=== PATIENT | female | born 1995 | race Caucasian/White ===

== ENCOUNTER 2019-05-10 21:07 | Emergency (ER) | payer SELFPAY ==
[2019-05-10 21:13] VITALS: BP 149/87; PULSE 126; RESP 20; TEMP 36.7; O2SAT 96; BMI 38.2
--- NOTE | 2019-05-10 21:30 | PC.NURSE ---
Patient reports that she has had a fever, chills, body aches, neck pain, and a sore throat.
--- NOTE | 2019-05-10 21:34 | W.ED.GENADLT ---
HPI - General Adult General: Chief complaint: General Medical Stated complaint: fever/neck pain Time Seen by Provider: 05/10/19 21:23 Source: patient Mode of arrival: ambulatory Limitations: no limitations History of Present Illness: HPI narrative: Patient comes in with 2-day history of illness with sore throat and chills starting yesterday. Patient appears mildly unwell. Patient appears in no pain at rest. Review of Systems General: Reports: 10 or more systems reviewed and unremarkable except in HPI and below Const: Reports: chills ENMT: Reports: throat pain PFSH ED PFSH: Statuses (acute, chronic, etc) shown below reflect problem list status as previously entered and may not be historically accurate Social History Smoking and tobacco status: never smoked Female Reproductive History: Date of last menstrual period: 05/03/19 Physical Exam Const: COMMON NORMALS: no apparent distress and oriented x3 GENERAL APPEARANCE: cooperative HENMT: COMMON NORMALS: normocephalic, external ears normal, EAC's normal, TM's normal bilaterally and external nose normal HEAD & SCALP: normal to inspection and normocephalic FACE & SINUS: normal facial exam NOSE: external nose normal GENERAL EAR: hearing not grossly impaired EXTERNAL EAR: Yes external ears normal EXTERNAL AUDITORY CANAL: EAC's normal TYMPANIC MEMBRANE: TM's normal bilaterally MOUTH: oral and palatal mucosa normal THROAT: posterior oropharynx abnormal erythema Eye: COMMON NORMALS: PERRL and EOMs intact bilaterally PUPIL: Yes PERRL Neck/C-Spine: COMMON NORMALS: full ROM and no lymphadenopathy Lymph: LYMPHATIC: no lymphedema noted Chest: COMMONS NORMALS: inspection of chest normal and palpation of chest normal Resp: COMMON NORMALS: normal respiratory effort and clear to auscultation bilaterally AUSCULTATION: clear to auscultation bilaterally Cardio: COMMON NORMALS: regular rate and regular rhythm RATE: regular rate RHYTHM: regular rhythm GI: COMMON NORMALS: normal to inspection, nondistended, normoactive bowel sounds and non-tender : COMMON NORMALS: Yes no CVA tenderness BLADDER/KIDNEY EXAM: Yes no CVA tenderness Back/Pelvis: COMMON NORMALS: no CVA tenderness and thoracic and lumbar spine normal to inspection Extremity: COMMON NORMALS: normal to inspection GENERAL: No edema Neuro: COMMON NORMALS: oriented x3, moves all extremities and no focal motor deficits Psych: COMMON NORMALS: mental status grossly normal and cooperative Skin: COMMON NORMALS: no rashes or lesions noted GENERAL SKIN EXAM: no rashes or lesions noted Course Vital Signs: Vital signs: Vital Signs Temperature 98.1 F 05/10/19 21:13 Pulse Rate 126 H 05/10/19 21:13 Respiratory Rate 20 H 05/10/19 21:13 Blood Pressure 149/87 05/10/19 21:13 Pulse Oximetry 96 05/10/19 21:13 MDM - General Adult MDM Narrative: Medical decision making narrative: Patient comes in today for complaints of sore throat and chills for last 2 days. On exam we note erythema to the posterior pharynx. No obvious swelling. No significant lymphadenopathy. Respirations are even lungs are clear to auscultation. Differential diagnosis includes influenza, strep, viral syndrome. Influenza and strep test were both negative. Reviewed exam with patient recommended dexamethasone to help with the discomfort of the sore throat. Recommend Tylenol and ibuprofen and plenty fluids otherwise. Patient reports understanding agreed to plan and need for follow-up for worsening signs and symptoms. Lab Data: Labs: Lab Results 05/10/19 05/10/19 Range/Units 21:28 21:28 Influenza Type A A g Negative (Negative) POC Influenza B Ag Negative (Negative) Group A Strep Rapi d Negative (Negative) Discharge Plan Discharge Patient Disposition: Home, Self-Care Clinical Impression: URI (upper respiratory infection) Qualifiers: URI type: acute pharyngitis Pharyngitis/tonsillitis etiology: unspecified etiology Qualified Code(s): J02.9 - Acute pharyngitis, unspecified Condition: Stable Discharge Orders: Discharge Order (Routine); Ordered 05/10/19 Ordered By: Magdaleno Cruz Referrals: Parish Martin DO [Primary Care Provider] - Discharge Diet: Usual diet Discharge Activity: Resume usual activity Patient Instructions: Pharyngitis (ED) Activity Restrictions/Additional Instructions: Drink plenty of water Activity as tolerated Acetaminophen and ibuprofen for pain and fever Follow-up with primary care as needed Return to ER for difficulty breathing or new concerns Stand Alone Forms: Work/School Release Coding Level of Care Code ED Social Sciences Lecturer for Alirio Dc Exam Problem Focused
[2019-05-10 22:10] LABS: Rapid Strep A Test Negative (Negative)
[2019-05-10 22:19] LABS: Influenza A by IFA Negative (Negative); Influenza B by IFA Negative (Negative)
[2019-05-10] MEDS: dexamethasone 10 mg/mL INJ IM (22:49)
[2019-05-10 22:52] VITALS: BP 132/88; PULSE 100; RESP 17; O2SAT 95
== END 2019-05-10 22:53 | disposition home or self-care (01) ==
PROVIDERS: Emergency Provider Nurse Practitioner Family; Family Provider Internal Medicine; PCP Internal Medicine
DX: J02.9 Acute pharyngitis, unspecified (principal)
CPT/HCPCS: 87081; 87804; 87880; 96372; 99282; 99283; J1100

== ENCOUNTER 2019-10-14 18:32 | Emergency (ER) | payer SELFPAY ==
[2019-10-14 18:36] VITALS: BMI 36.6
[2019-10-14 18:40] VITALS: BP 115/68; PULSE 113; RESP 18; TEMP 37.2; O2SAT 93
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
[2019-10-14 20:30] VITALS: BP 164/58; PULSE 72; RESP 18; O2SAT 96
== END 2019-10-14 20:39 | disposition home or self-care (01) ==
PROVIDERS: Emergency Provider Nurse Practitioner Family; PCP Internal Medicine
DX: S00.03XA Contusion of scalp, initial encounter (principal); M54.2 Cervicalgia; W22.09XA Striking against other stationary object, initial encounter
CPT/HCPCS: 12345; 70450; 72125; 99281; 99282

== ENCOUNTER 2019-11-28 22:38 | Emergency (ER) | payer SELFPAY ==
[2019-11-28 22:48] VITALS: BP 140/92; PULSE 97; RESP 18; TEMP 36.7; O2SAT 99; BMI 38.2
--- NOTE | 2019-11-28 22:51 | ED_ITS ---
HPI - Ear Problem General: Chief complaint: Ear Stated complaint: earache Time Seen by Provider: 11/28/19 22:46 History of Present Illness: HPI Narrative: Patient is a 24-year-old female comes to the ED with ear pain in the right ear. Symptoms started approximately 1 week ago. Patient describes the pain as being sharp ear pain and now any touch to her external part of her ear causes pain. Denies any fever, chills, nausea/vomiting, cough, nasal congestion or drainage, bladder or bowel symptoms. Denies any recent swimming or getting any water in her ear. Associated symptoms: Reports ear or mastoid pain (right ear); Denies fever(s), headache(s) or neck pain Review of Systems Const: Denies: fever(s), chills or fatigue Eyes: Denies: change in vision or eye discomfort ENMT: Reports: ear or mastoid pain (right ear); Denies: throat pain, odynophagia, nasal discharge or nasal congestion Card: Denies: chest pain, palpitations, edema, swelling of feet/ankles, dyspnea on exertion or orthopnea Resp: Denies: dyspnea, productive cough or non-productive cough GI: Denies: abdominal pain, nausea, vomiting, diarrhea, constipation or hematochezia : Denies: flank pain, dysuria or hematuria Musc: Denies: neck pain, back pain or extremity swelling Skin/Breast: Denies: rash or new lesions Neuro: Denies: headache(s), numbness in extremities or weakness in extremities PFSH ED PFSH: Social History Smoking and tobacco status: never smoked Female Reproductive History: Date of last menstrual period: 11/14/19 Physical Exam Const: COMMON NORMALS: no acute distress, patient oriented x3, healthy appearing and alert GENERAL APPEARANCE: cooperative and comfortable HENMT: COMMON NORMALS: normocephalic HEAD & SCALP: normocephalic EXTERNAL EAR: Yes external ear abnormal Abnormal external ear present: auricular tenderness (right ) EXTERNAL AUDITORY CANAL: Abnormal EAC present EAC laterality: right Details: erythema, edema and EAC tenderness TYMPANIC MEMBRANE: TM normal on the left and TM abnormal TM laterality: right Details: bulging and fluid behind TM MOUTH: Normal oral and palatal mucosa present THROAT: posterior oropharynx normal and uvula midline Neck/C-Spine: COMMON NORMALS: supple GENERAL: Yes normal visual inspection Resp: COMMON NORMALS: normal respiratory effort, No retractions, No use of accessory muscles and clear to auscultation bilaterally AUSCULTATION: clear to auscultation bilaterally Cardio: COMMON NORMALS: regular rate, regular rhythm, S1 normal heart sound present, S2 normal heart sound present, No gallops present (Cardio), No clicks present (Cardio), No murmurs present (Cardio) and Peripheral pulses 2+ throughout RATE: regular rate RHYTHM: regular rhythm HEART SOUNDS: S1 normal heart sound present and S2 normal heart sound present PERIPHERAL PULSES: Peripheral pulses 2+ throughout GI: COMMON NORMALS: Normal to inspection, nondistended, normoactive bowel sounds present, Soft to palpation, non-tender and no masses PALPATION: Yes Soft to palpation : COMMON NORMALS: Yes no CVA tenderness BLADDER/KIDNEY EXAM: Yes no CVA tenderness Back/Pelvis: COMMON NORMALS: no CVA tenderness Extremity: COMMON NORMALS: normal to inspection Neuro: COMMON NORMALS: patient oriented x3 and moves all extremities SENSORIUM/ORIENTATION: Yes alert Skin: COMMON NORMALS: no rashes or lesions noted GENERAL SKIN EXAM: no rashes or lesions noted and dry skin Course Vital Signs: Vital signs: Vital Signs Temperature 98.1 F 11/28/19 22:48 Pulse Rate 97 11/28/19 22:48 Respiratory Rate 18 11/28/19 22:48 Blood Pressure 140/92 11/28/19 22:48 Pulse Oximetry 99 11/28/19 22:48 MDM - Ear MDM Narrative: Medical decision making narrative: Patient is a 24-year-old female comes to the ED with right ear pain. Patient appears in no acute distress and is sitting comfortable in the room. Denies any fever, chills, headache, nausea/vomiting, other upper respiratory symptoms. Physical exam showed some auricular tenderness upon palpation of the right ear. Right EAC was tender along with some erythema and edema in the EAC. TM on the right side had some fluid behind it and appeared to be bulging. Patient diagnosed with otitis media and otitis externa and given a prescription for amoxicillin and Ciprodex eardrops. Patient follow-up with primary care doctor in 7 to 10 days for reevaluation. Return to ED precautions given. Patient understood and agree with plan. Discharge Plan Discharge Patient Disposition: Home Clinical Impression: Otitis externa Qualifiers: Otitis externa type: swimmer's ear Chronicity: acute Laterality: right Qualified Code(s): H60.331 - Swimmer's ear, right ear Otitis media Qualifiers: Otitis media type: suppurative Chronicity: acute Laterality: right Recurrence: non-recurrent Spontaneous tympanic membrane rupture: without spontaneous rupture Qualified Code(s): H66.001 - Acute suppurative otitis media without spontaneous rupture of ear drum, right ear Condition: Stable Prescriptions: New ciprofloxacin-dexamethasone 0.3-0.1 % drops,suspension 4 drop EAR-BOTH BID 7 Days Qty: 7.5 RF: 0 amoxicillin 500 mg capsule 500 mg PO BID 10 Days Qty: 20 RF: 0 No Action No Known Home Medications RF: 0 Discharge Orders: Discharge Order (Routine); Ordered 11/28/19 Ordered By: Brian Hernandez Referrals: Parish Martin DO [Primary Care Provider] - Discharge Diet: Regular Discharge Activity: Resume usual activity Patient Instructions: Otitis Externa (ED), Otitis Media (ED) Activity Restrictions/Additional Instructions: Follow-up with medical provider as directed in the next 7-10 days. Take medications as prescribed. Return to the ER or your medical provider if condition worsens. Please read and understand discharge instructions. If any questions, please ask. Coding Level of Care Code ED Labor Conciliator for Alirio Fwd Exam Comprehensive
[2019-11-28] MEDS: ciprofloxacin-dexameth Otic Susp 7.5 mL Btl 4 DROP EAR-RIGHT (23:25)
[2019-11-28] MEDS: amoxicillin 500 mg Capsule PO (23:25)
[2019-11-28 23:27] VITALS: BP 127/84; PULSE 97; RESP 18; O2SAT 98
== END 2019-11-28 23:29 | disposition home or self-care (01) ==
PROVIDERS: Emergency Provider Physician Assistant; PCP Internal Medicine
DX: H60.331 Swimmer's ear, right ear (principal); H66.001 Acute suppurative otitis media without spontaneous rupture of ear drum, right ear
CPT/HCPCS: 12345; 99281; 99283

== ENCOUNTER → 2019-12-19 11:24 | Outpatient (BNVA) | payer OTHER, SELFPAY | PROVIDERS: PCP Internal Medicine; Visit Provider Nurse Practitioner Family | DX: J06.9 Acute upper respiratory infection, unspecified (principal); Z20.828 Contact with and (suspected) exposure to other viral communicable diseases | CPT/HCPCS: 87635 ==

== ENCOUNTER 2020-04-21 14:06 | Emergency (ER) | payer SELFPAY ==
[2020-04-21 14:29] VITALS: BP 135/91; PULSE 92; RESP 14; TEMP 36.2; O2SAT 97; BMI 39.2
--- NOTE | 2020-04-21 15:05 | ED_ITS ---
HPI - General Adult General: Chief complaint: General Medical Stated complaint: PIERCING STUCK, NEEDS REMOVED Time Seen by Provider: 04/21/20 15:04 History of Present Illness: HPI narrative: Patient is a 24-year-old female who comes to the ED to get piercing/foreign body removed from left areola. Patient says approximately a month ago she had her left areole pierced. She states that she pulled the bulb and through the first opening of the skin and it got stuck. She has been unable to remove piercing and for the past 3 days it got more painful and she states there is some purulent drainage. Associated symptoms: Deny chest pain, dyspnea, headache(s), nausea, rash, palpitations or vomiting Review of Systems Const: Denies: fever(s), chills or fatigue Eyes: Denies: change in vision or eye discomfort ENMT: Denies: throat pain, odynophagia, nasal discharge or nasal congestion Card: Denies: chest pain, palpitations, edema, swelling of feet/ankles, dyspnea on exertion or orthopnea Resp: Denies: dyspnea, productive cough or non-productive cough GI: Denies: abdominal pain, nausea, vomiting, diarrhea, constipation or hematochezia : Denies: flank pain, dysuria or hematuria Musc: Denies: neck pain, back pain or extremity swelling Skin/Breast: Reports: other (Foreign body in soft tissue. Areola piercing ); Denies: rash or new lesions Neuro: Denies: headache(s), numbness in extremities or weakness in extremities PFS ED PFSH: Social History Smoking and tobacco status: never smoked Female Reproductive History: Date of last menstrual period: 11/14/19 Physical Exam Const: COMMON NORMALS: no acute distress and patient oriented x3 GENERAL APPEARANCE: cooperative and comfortable HENMT: COMMON NORMALS: normocephalic HEAD & SCALP: normocephalic MOUTH: Normal oral and palatal mucosa present THROAT: posterior oropharynx normal and uvula midline Neck/C-Spine: COMMON NORMALS: supple GENERAL: Yes normal visual inspection Chest: NIPPLE/AREOLA: Yes areola abnormal Areola abnormal details: other (Embedded piercing with minimal purulent drainage around it.) Resp: COMMON NORMALS: normal respiratory effort, No retractions, No use of accessory muscles and clear to auscultation bilaterally AUSCULTATION: clear to auscultation bilaterally Cardio: COMMON NORMALS: regular rate, regular rhythm, S1 normal heart sound present, S2 normal heart sound present, No gallops present (Cardio), No clicks present (Cardio), No murmurs present (Cardio) and Peripheral pulses 2+ throughout RATE: regular rate RHYTHM: regular rhythm HEART SOUNDS: S1 normal heart sound present and S2 normal heart sound present PERIPHERAL PULSES: Peripheral pulses 2+ throughout GI: COMMON NORMALS: Normal to inspection, nondistended, normoactive bowel sounds present, Soft to palpation, non-tender and no masses PALPATION: Yes Soft to palpation : COMMON NORMALS: Yes no CVA tenderness BLADDER/KIDNEY EXAM: Yes no CVA tenderness Back/Pelvis: COMMON NORMALS: no CVA tenderness Extremity: COMMON NORMALS: normal to inspection Neuro: COMMON NORMALS: patient oriented x3 and moves all extremities Skin: GENERAL SKIN EXAM: dry skin Procedures Foreign Body Removal Time Out Performed: yes Site: other (Left areola--metal peircing) Description of foreign body: other (metal piercing) Sedation/Analgesia: none Technique: incision made to facilitate removal (local Lidocaine 1% used and then small incision made with #11 blade. metal peircing was successfully removed.) Confirmed by:: direct visualization Complications: none Post-procedure exam: awake, alert Neurovascular: no change from pre-procedure Course Vital Signs: Vital signs: Vital Signs Temperature 97.1 F L 04/21/20 14:29 Pulse Rate 92 04/21/20 14:29 Respiratory Rate 14 04/21/20 14:29 Blood Pressure 135/91 04/21/20 14:29 Pulse Oximetry 97 04/21/20 14:29 MDM - General Adult MDM Narrative: Medical decision making narrative: Patient is a 24-year-old female has a piercing on the left areola that is stuck. Local lidocaine 1% used and small incision made to facilitate removal of metal piercing. It was successfully removed and patient was discharged and put on a antibiotic to prevent any infection. Return to ED precautions given. Follow-up with PCP in 7 to 10 days. Patient understood and agreed with plan. Discharge Plan Discharge Patient Disposition: Home Clinical Impression: Foreign body (FB) in soft tissue Condition: Stable Prescriptions: New Augmentin 500-125 mg tablet 1 tab PO BID 7 Days Qty: 14 RF: 0 No Action No Known Home Medications RF: 0 hydrocodone-acetaminophen 5-325 mg tablet 1 tab PO Q4H PRN (Reason: pain) Qty: 10 RF: 0 Discharge Orders: Discharge ED (Routine); Ordered 04/21/20 Ordered By: Brian Hernandez Referrals: Parish Martin, [Primary Care Provider] - Discharge Diet: Regular Discharge Activity: Resume usual activity Patient Instructions: Soft Tissue Foreign Body (ED) Activity Restrictions/Additional Instructions: Follow-up with medical provider as directed in 7-10 days. Take medications as prescribed. Return to the ER or your medical provider if condition worsens. Please read and understand discharge instructions. If any questions, please ask. Coding Level of Care Code ED Manager Corporate Strategy for Alirio Fwd Exam Comprehensive
--- NOTE | 2020-04-21 15:26 | PC.NURSE ---
Laceration kit at bedside.
[2020-04-21] MEDS: lidocaine 1% INJ 20 mL INJECTION (15:29)
--- NOTE | 2020-04-21 15:41 | PC.NURSE ---
Nipple ring removed by BERNIE Caal.
--- NOTE | 2020-04-22 10:01 | DCPLANNER ---
rollout manager had message to schedule a follow up appointment for patient with ortho. rollout manager called the ortho clinic, spoke with Aleksandra, gave clinic patients information. rollout manager was told that patients information would be printed and reviewed. Clinic will call patient with appointment information.
--- NOTE | 2020-04-23 07:34 | DCPLANNER ---
Patient has a follow up appointment scheduled for Thursday, April 23, 2020 at 8:[address] Cedillo at [facility]. Clinic will call patient with appointment information.
--- NOTE | 2020-05-24 14:50 | DCPLANNER ---
Patient had a follow up appointment scheduled for 04.23.20 with ortho - patient did attend appointment.
== END 2020-04-21 15:57 | disposition home or self-care (01) ==
PROVIDERS: Emergency Provider Physician Assistant; PCP Internal Medicine
DX: M79.5 Residual foreign body in soft tissue (principal)
CPT/HCPCS: 10120; 12345; 99282

== ENCOUNTER 2020-04-21 20:13 | Emergency (ER) | payer SELFPAY ==
[2020-04-21 20:41] VITALS: BP 142/89; PULSE 79; RESP 16; TEMP 36.2; O2SAT 99; BMI 39.4
--- NOTE | 2020-04-21 21:03 | XRR_ITS ---
PROCEDURE INFORMATION: Exam: XR Left Foot Complete Exam date and time: 04/21/2020 9:05 PM Age: 24 years old Clinical indication: Injury or trauma; Fall; Blunt trauma; Injury date: 04/21/20; Injury details: Left lateral foot pain, right lateral foot and leg pain TECHNIQUE: Imaging protocol: XR Left foot. Views: 3 or more views. COMPARISON: No relevant prior studies available. FINDINGS: Bones/joints: There is an oblique fracture through the shaft of the 5th metatarsal bone with about 3 mm of dorsal medial displacement. Soft tissues: Normal. XR/XR foot LT min 3V* [id number] IMPRESSION: Mildly displaced oblique fracture of the shaft of the 5th metatarsal bone.
--- NOTE | 2020-04-21 21:03 | XRR_ITS ---
PROCEDURE INFORMATION: Exam: XR Right Foot Complete Exam date and time: 04/21/2020 9:05 PM Age: 24 years old Clinical indication: Injury or trauma; Fall; Blunt trauma; Injury date: 04/21/20; Patient HX: Left lateral foot pain, right lateral foot and leg pain TECHNIQUE: Imaging protocol: XR Right foot. Views: 3 or more views. COMPARISON: No relevant prior studies available. FINDINGS: Bones/joints: There is an oblique fracture through the distal fibula. The bones of the foot appear to be intact with no other fractures. No significant degenerative or erosive changes are present. Soft tissues: Normal. XR/XR foot RT min 3V* [id number] IMPRESSION: Oblique fracture of the distal fibula.
[2020-04-21 21:14] VITALS: PULSE 66
--- NOTE | 2020-04-21 21:16 | XRR_ITS ---
PROCEDURE INFORMATION: Exam: XR Right Ankle Exam date and time: 04/21/2020 9:41 PM Age: 24 years old Clinical indication: Injury or trauma; Fall; Blunt trauma; Ankle; Injury date: 04/21/20; Patient HX: Left lateral foot pain, right lateral foot and leg pain; Additional info: Fall ankle pain TECHNIQUE: Imaging protocol: XR Right ankle. Views: 3 or more views. COMPARISON: CR XR foot RT min 3V* [id number] 04/21/2020 9:19 PM FINDINGS: Bones/joints: There is no bleak fracture through the distal fibula just above the ankle joint. The distal fragment is displaced about 2.5 mm posteriorly. There is mild widening of the joint space between the medial malleolus and talus which may indicate deltoid ligament injury. Soft tissues: Normal. XR/XR ankle RT min 3V* [id number] IMPRESSION: There is an oblique mildly displaced fracture of the distal fibula and possible deltoid ligament injury.
--- NOTE | 2020-04-21 21:17 | ED_ITS ---
HPI - Fall General: Chief Complaint: Fall Stated Complaint: FALL, CAN'T FEEL EITHER FOOT Time Seen by Provider: 04/21/20 20:53 Source: patient Mode of arrival: wheelchair Limitations: no limitations History of Present Illness: HPI Narrative: 24-year-old female patient presents to the emergency department with bilateral foot pain and right ankle pain. She reports was walking down the steps to take the trash out, was walking in her flip-flops and fell down 4 stairs. She reports pain to the bilateral feet, has not ambulated since the fall due to pain in her feet. She denies any further injuries, denies pain of her back or buttocks. She did not hit her head. Does not experience nausea vomiting. MD complaint: fall Onset (ago): minute(s) (30) Fall from: standing and down stairs (#) (4) Place fall occurred: home Loss of consciousness: None Prolonged down time: no Symptoms prior to fall: none Context: tripped/slipped Location of injury - extremities: Right: ankle and Bilateral: foot Severity: moderate Quality: sharp, aching and tingling Associated symptoms-after fall: Reports no associated symptoms; Denies abdominal pain, chest pain, headache(s) or neck pain Review of Systems General: Reports: 10 or more systems reviewed and unremarkable except in HPI and below Const: Denies: fever(s), chills or diaphoresis Eyes: Denies: blurry vision or eye redness ENMT: Denies: throat pain, dental pain or disequilibrium Card: Denies: chest pain, palpitations or irregular heart rhythm Resp: Denies: dyspnea, productive cough, non-productive cough or wheezing GI: Denies: abdominal pain, nausea or vomiting : Denies: difficulty voiding or dysuria Musc: Reports: joint pain (Bilateral feet) and joint swelling (Bilateral feet); Denies: neck pain or back pain Skin/Breast: Denies: rash or pruritus Neuro: Denies: headache(s), weakness in extremities or behavioral changes Psych: Denies: anxiety or depression Julian/Lymph: Denies: easy bruising PFS ED PFSH: Social History Smoking and tobacco status: never smoked Female Reproductive History: Date of last menstrual period: 11/14/19 Physical Exam Const: COMMON NORMALS: no acute distress, patient oriented x3, healthy appearing, alert and well nourished GENERAL APPEARANCE: cooperative, well kempt, well developed and well hydrated; not comfortable and not ill appearing NUTRITIONAL APPEARANCE: obese ORIENTATION/CONSCIOUSNESS: Yes awake, Yes oriented to person, Yes oriented to place and Yes oriented to time HENMT: COMMON NORMALS: normocephalic, atraumatic, Normal external nose present and moist oral mucous membranes HEAD & SCALP: normal to inspection, normocephalic and atraumatic FACE & SINUS: normal facial exam, sinuses nontender and face symmetric NOSE: Normal external nose present MOUTH: Normal oral and palatal mucosa present THROAT: posterior oropharynx normal Eye: COMMON NORMALS: Equal, round and reactive pupils present and EOMs intact bilaterally GENERAL EYE: appearance normal, both eyes and all related structures PUPIL: Yes Equal, round and reactive pupils present Neck/C-Spine: COMMON NORMALS: full ROM, no lymphadenopathy and supple GENERAL: Yes normal visual inspection and Yes trachea midline CERVICAL SPINE: Yes cervical ROM normal, No cervical ROM abnormal, No pain with cervical ROM, No loss of normal cervical lordosis and No Cervical spine tenderness Lymph: LYMPHATIC: no lymphadenopathy noted Chest: COMMONS NORMALS: normal inspection of the chest and normal palpation of entire chest wall CHEST: No localized rib tenderness with anteroposterior compression Resp: COMMON NORMALS: normal respiratory effort, No retractions, No use of accessory muscles and clear to auscultation bilaterally EFFORT & INSPECTION: Yes able to speak in complete sentences AUSCULTATION: clear to auscultation bilaterally Cardio: COMMON NORMALS: regular rate, regular rhythm, S1 normal heart sound present, S2 normal heart sound present and Peripheral pulses 2+ throughout RATE: regular rate RHYTHM: regular rhythm HEART SOUNDS: S1 normal heart sound present and S2 normal heart sound present PERIPHERAL PULSES: Peripheral pulses 2+ throughout GI: COMMON NORMALS: Normal to inspection, nondistended, normoactive bowel sounds present, Soft to palpation and non-tender INSPECTION: Yes normal to inspection PALPATION: Yes Soft to palpation : COMMON NORMALS: Yes no CVA tenderness BLADDER/KIDNEY EXAM: Yes no CVA tenderness Back/Pelvis: COMMON NORMALS: no CVA tenderness, thoracic and lumbar spine normal to inspection, no thoracic nor lumbar tenderness and thoraco-lumbar ROM normal THORACIC SPINE/UPPER BACK: No ROM limited, No thoracic spinal tenderness, No paraspinal muscle tenderness and No paraspinal muscle spasm LUMBAR SPINE/LOWER BACK: No ROM limited, No lumbar spinal tenderness, No paraspinal muscle tenderness and No paraspinal muscle spasm Extremity: COMMON NORMALS: normal to inspection, capillary refill normal and no calf tenderness GENERAL: Yes normal exam except as noted OTHER: Slight swelling over the dorsal of the bilateral feet, distal circulation intact bilaterally, pain with dorsi flexion extension bilateral, right ankle lateral tenderness present. Positive drawer exam right ankle, sensation intact distally bilateral feet. Neuro: COMMON NORMALS: patient oriented x3 and no focal motor deficits SENSORIUM/ORIENTATION: Yes alert, Yes oriented to person, Yes oriented to place and Yes oriented to time Psych: COMMON NORMALS: mental status grossly normal, Normal thought process present and cooperative APPEARANCE: Yes well kempt ACTIVITY/MOTOR BEHAVIOR: Yes appropriate eye contact THOUGHT PROCESS: Normal thought process present Skin: COMMON NORMALS: no rashes or lesions noted and turgor normal GENERAL SKIN EXAM: no rashes or lesions noted and turgor normal Procedures Orthopedic Splinting/Casting Injury #1: Side: right Lower Extremity Injury Location: lower leg Lower Extremity Immobilizer: posterior splint, stirrup splint and Dale wrap Other Orthopedic Equipment: crutches and other (wheelchair Rx) Course Vital Signs: Vital signs: Vital Signs Temperature 97.1 F L 04/21/20 20:41 Pulse Rate 66 04/21/20 21:14 Respiratory Rate 16 04/21/20 20:41 Blood Pressure 142/89 04/21/20 20:41 Pulse Oximetry 99 04/21/20 20:41 MDM - Fall MDM Narrative: Medical decision making narrative: Patient presents to the emergency department with distal fibula fracture, nondisplaced; right fifth distal fifth MTP fracture with angulation and mild displacement. Referrals been placed to social welfare administrator to assist with orthopedic consult. Splints placed bilateral lower extremities; hydrocodone prescribed as per Dr. Barnes. Patient was advised no weightbearing on the right lower extremity. Discharge Plan Discharge Patient Disposition: Home Clinical Impression: Fall (on) (from) unspecified stairs and steps, initial encounter Fracture of distal end of right fibula Qualifiers: Encounter type: initial encounter Fracture type: closed Fracture morphology: unspecified fracture morphology Qualified Code(s): S82.831A - Other fracture of upper and lower end of right fibula, initial encounter for closed fracture Metatarsal bone fracture Qualifiers: Encounter type: initial encounter Metatarsal bone: fifth Fracture type: closed Fracture alignment: displaced Laterality: left Qualified Code(s): S92.352A - D isplaced fracture of fifth metatarsal bone, left foot, initial encounter for closed fracture Condition: Stable Prescriptions: New hydrocodone-acetaminophen 5-325 mg tablet 1 tab PO Q4H PRN (Reason: pain) Qty: 10 RF: 0 No Action No Known Home Medications RF: 0 Augmentin 500-125 mg tablet 1 tab PO BID 7 Days Qty: 14 RF: 0 Discharge Orders: Discharge ED (Routine); Ordered 04/21/20 Ordered By: Princess Meneses Referrals: Parish Martin DO [Primary Care Provider] - Discharge Diet: Usual diet Discharge Activity: Limit activity as instructed Patient Instructions: Leg Fracture (ED), Crutch Instructions (ED), Foot Fracture in Adults (ED), Fall Prevention (ED) Activity Restrictions/Additional Instructions: Avoid weight bearing of the right lower extremity, use crutches as directed, prescription for wheelchair has been provided to help with mobility. ambulatory services representative will be contacting you with an appointment with orthopedic specialty Return to the emergency department if you develop worsening pain, inability to feel your feet or other concerning symptoms Keep lower extremities elevated to help reduce swelling and keep ice applied to the Dale wraps. Do not take off splints unless tightness occurs. 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
[2020-04-21] MEDS: HYDROcodone-acetaminophen 5-325 mg Tablet 1 TAB PO ×2 (21:23→22:48)
--- NOTE | 2020-04-21 21:29 | XRR_ITS ---
PROCEDURE INFORMATION: Exam: XR Right Tibia and Fibula Exam date and time: 04/21/2020 9:41 PM Age: 24 years old Clinical indication: Injury or trauma; Fall; Blunt trauma; Lower leg; Injury date: 04/21/20; Patient HX: Left lateral foot pain, right lateral foot and leg pain; Additional info: Distal fib FX TECHNIQUE: Imaging protocol: XR Right tibia and fibula. Views: 2 views. COMPARISON: No relevant prior studies available. FINDINGS: Bones/joints: There is no bleak fracture through the distal fibula with about 2.5 mm of posterior displacement. No tibia fractures are seen. Soft tissues: Normal. XR/XR tibia fibula RT 2V [id number] IMPRESSION: Mildly displaced oblique fracture of the distal fibula.
[2020-04-21 23:10] VITALS: BP 157/92; PULSE 68; RESP 18; O2SAT 99
== END 2020-04-21 23:13 | disposition home or self-care (01) ==
PROVIDERS: Emergency Provider Nurse Practitioner Family; PCP Internal Medicine
DX: S82.831A Other fracture of upper and lower end of right fibula, initial encounter for closed fracture (principal); S92.352A Displaced fracture of fifth metatarsal bone, left foot, initial encounter for closed fracture; W10.8XXA Fall (on) (from) other stairs and steps, initial encounter
CPT/HCPCS: 12345; 73590; 73610; 73630; 99281; 99283

== ENCOUNTER → 2020-04-23 10:07 | Outpatient (BNVA) | payer SELFPAY | PROVIDERS: PCP Internal Medicine; Referring Provider Emergency Medicine; Visit Provider Podiatrist Foot & Ankle Surgery | DX: S92.352A Displaced fracture of fifth metatarsal bone, left foot, initial encounter for closed fracture (principal); S82.831A Other fracture of upper and lower end of right fibula, initial encounter for closed fracture; W10.9XXA Fall (on) (from) unspecified stairs and steps, initial encounter | CPT/HCPCS: 73610 ==

== ENCOUNTER 2020-04-23 11:12 | Outpatient (CLI) | payer SELFPAY | END 2020-04-23 11:13 | disposition home or self-care (01) | LOC: SPT 11:13 | PROVIDERS: PCP Internal Medicine; Visit Provider Podiatrist Foot & Ankle Surgery | DX: Z46.89 Encounter for fitting and adjustment of other specified devices (principal); S82.831D Other fracture of upper and lower end of right fibula, subsequent encounter for closed fracture with routine healing; S92.352D Displaced fracture of fifth metatarsal bone, left foot, subsequent encounter for fracture with routine healing; X58.XXXD Exposure to other specified factors, subsequent encounter | CPT/HCPCS: L4361 ==

== ENCOUNTER → 2020-05-08 10:50 | Outpatient (BNVA) | payer SELFPAY | PROVIDERS: PCP Internal Medicine; Visit Provider Podiatrist Foot & Ankle Surgery | DX: S92.352A Displaced fracture of fifth metatarsal bone, left foot, initial encounter for closed fracture (principal); S82.831A Other fracture of upper and lower end of right fibula, initial encounter for closed fracture; W10.9XXA Fall (on) (from) unspecified stairs and steps, initial encounter; Z20.822 Contact with and (suspected) exposure to COVID-19 | CPT/HCPCS: 73610; 73630; 87635 ==

== ENCOUNTER 2020-05-10 08:40 | Day surgery (SDC) | payer SELFPAY ==
[2020-05-09 15:28] VITALS: BMI 39.4
[2020-05-10] VITALS (9 sets, daily range): BP systolic 131–160; BP diastolic 62–102; PULSE 84–110; RESP 11–20; TEMP 36.2–36.6; O2SAT 91–98
--- NOTE | 2020-05-10 | SCC_ITS ---
Procedure Done: Open reduction internal fixation right distal fibular fracture CPT code 13648 Open reduction internal fixation left fifth metatarsal CPT code 79153 8 seconds of fluoroscopic guidance, for a cumulative dose of 0.2 mGy, was provided to Dr. Cedillo by the radiology department. C-arm images of the RIGHT ankle and LEFT foot were saved for the patient's permanent record. [facility]
[2020-05-10 09:25] LABS: OR HCG Qualitative Urine Negative (Negative)
--- NOTE | 2020-05-10 09:52 | ANES.PREANE2 ---
Pre-Anesthetic Assessment Pre-Anesthetic Assessment: Height/Weight: Height 1.65 m Weight 107.501 kg Temp Pulse Resp BP Pulse Ox 97.2 F L 99 18 131/81 98 05/10/20 09:11 05/10/20 09:11 05/10/20 09:11 05/10/20 09:11 05/10/20 09:11 Preop Diagnosis: Right fibular fracture, left fifth metatarsal fracture Proposed Procedure: Operation Date: 05/10/20 10:40 Proposed Procedures p [id number]/S82.831A/S92.352A open reduction internal fixation right fibular fracture(Right) - Srini Cedillo DPM s Open reduction internal fixation left fifth metatarsal fracture.(Left) - Srini Cedillo DPM Was Beta Claudia taken within 24 hours: N/A Last intake: Intake Last Liquid Date 05/09/20 Last Liquid Time 23:30 Last Solid Date 05/09/20 Last Solid Time 21:00 Social: Social History: No alcohol and No tobacco Exam: Pre-Anes Outpt Exam: alert, oriented x 3, clear to auscultation bilaterally and regular rate & rhythm Airway: Submandibular: WNL Cervical ROM: WNL MP: 2 Dentition: Full History/ROS: No significant history except as noted Metabolic: Metabolic: Morbid obesity Anesthetic Plan: ASA status: 2 Anesthesia: MAC Risk of > 500 ml blood loss (7ml/kg in children): No PFSH Anesthesia PFSH: Medical History Close exposure to COVID-19 virus Foreign body (FB) in soft tissue Suspected COVID-19 virus infection Viral URI with cough Social History Smoking and tobacco status: never smoked Female Reproductive History: Date of last menstrual period: 04/08/20 Data Anesthesia Other Labs: Laboratory Results - last 48 hr 05/10/20 09:22 Urine HCG, Qual Negative Cardiac Studies: No Data to Display
[2020-05-10] MEDS: sodium chloride 0.9% 1,000 ML 30 ML IV (10:16)
--- NOTE | 2020-05-10 10:32 | P.HPUD_ITS ---
Surgery/Procedure H&P Update DATE OF PROCEDURE: May 10, 2020 DATE H&P PERFORMED: 05/08/20 H&P UPDATE INFORMATION: I have reviewed H&P completed within last 30 days, I have examined patient prior to procedure, No changes to prior documentation and H&P is in [facility] [place] [facility] EMR on date indicated PREOP DIAGNOSIS: Right fibular fracture, left fifth metatarsal fracture PLANNED PROCEDURE: Operation Date: 05/10/20 10:40 Proposed Procedures p [id number]/S82.831A/S92.352A open reduction internal fixation right fibular fracture(Right) - Srini Cedillo DPM s Open reduction internal fixation left fifth metatarsal fracture.(Left) - Srini Cedillo DPM
--- NOTE | 2020-05-10 11:32 | P.HPUD_ITS ---
Surgery/Procedure H&P Update DATE OF PROCEDURE: May 10, 2020 DATE H&P PERFORMED: 05/08/20 H&P UPDATE INFORMATION: I have reviewed H&P completed within last 30 days, I have examined patient prior to procedure, No changes to prior documentation and [place] [facility] indicated PREOP DIAGNOSIS: Right fibular fracture, left fifth metatarsal fracture PLANNED PROCEDURE: Operation Date: 05/10/20 10:40 Proposed Procedures p [id number]/01515/S82.831A/S92.352A open reduction internal fixation right fibular fracture(Right) - Srini Cedillo DPM s Open reduction internal fixation left fifth metatarsal fracture.(Left) - Srini Cedillo DPM
--- NOTE | 2020-05-10 12:58 | XR_ITS ---
WS: [id number] Exam: XR foot LT min 3V* [id number] Date/Time of Exam: 05/10/2020 1:00 PM Reason For Exam: post op Comparison 05/08/2020. There is plate and screw fixation involving an oblique fracture of the distal fifth metatarsal. The f racture appears to be stabilized in satisfactory alignment for healing. No other finding. XR/XR foot LT min 3V* [id number] IMPRESSION: 1. Internal orthopedic fixation involving a fracture of the fifth metatarsal.
--- NOTE | 2020-05-10 12:58 | XR_ITS ---
WS: [id number] Exam: XR ankle RT min 3V* [id number] Date/Time of Exam: 05/10/2020 12:58 PM Reason For Exam: post op Comparison 05/08/2020. There is plate and screw fixation involving a fracture of the fibula. The fracture is stabilized in t he anatomic alignment for healing. No other fractures the ankle are noted. Surgical skin clips are no omar laterally. XR/XR ankle RT min 3V* [id number] IMPRESSION: 1. Satisfactory internal orthopedic fixation involving a fracture of the distal fibula.
[2020-05-10] MEDS: diphenhydrAMINE 50 mg/mL SDV 1mL 25 MG IVP (13:06)
[2020-05-10] MEDS: ondansetron 2 mg/ML SDV 2 mL 4 MG IVP (13:06)
--- NOTE | 2020-05-10 14:29 | ANE.PACU2 ---
Inpatient post-anesthesia follow up: Airway intact: Yes Vital signs: Temperature 97.8 F Pulse Rate 84 Respiratory Rate 18 Blood Pressure 157/84 Pulse Oximetry 96 Oxygen Delivery Me thod Room Air Oxygen Flow Rate Fraction of Inspir ed Oxygen Hydration adequate: Yes Nausea and vomiting: Yes (Some nausea and vomiting controlled with Zofran and Benadryl) Pain level: 1 Mental status: Baseline
--- NOTE | 2020-05-10 18:48 | P.OP_ITS ---
Operative Report Date of procedure: May 10, 2020 Pre-op Diagnosis: Right fibular fracture, left fifth metatarsal fracture Post-op diagnosis: same Post-op Findings: None Procedure Done: Open reduction internal fixation right distal fibular fracture CPT code 22654 Open reduction internal fixation left fifth metatarsal CPT code 40831 Implants: 2-0 Vicryl, 4-0 Vicryl, skin cristy, 4-0 nylon. Gloria one third tubular plate, Gloria 3.5 locking screws, Gloria 4 hole straight plate, Ster[place] 2.7 mm locking screws and 2.7 mm nonlocking screws. Specimens removed/disposition: None Pathology: none sent Surgeon: Srini Cedillo D.P.M. Metal Patternmaker: Arabella Anesthesia: MAC Estimated blood loss: Less than 5 mL Tourniquet time: 25 minutes of tourniquet time to the right ankle, 25 minutes of tourniquet time left ankle IV fluids: None Urine output: None Complications: None Condition: stable Disposition: PACU Brief History: Ms. Manjarrez is a pleasant 24-year-old female who tripped on a flight of stairs injuring her right ankle and her left foot. X-ray shows minimally displaced Saw Wu B fracture to the right fibula and a displaced oblique fracture of the distal diaphysis of the left fifth metatarsal. I discussed both conservative and surgical treatment options. The advantage of conservative treatment would be the avoiding surgery and accompanying risks as well as anesthesia, disadvantage of conservative care would be delayed union and malunion. After weighing in detail options both ways patient would like to proceed with surgical fixation she states that she does not want to risk a delay of healing and would like to get back to full activity as quick as possible. Risks include pain, bleeding, numbness, infection, hardware irritation, hardware failure, allergic reaction to hardware, inherent risks of anesthesia, DVT, cerebrovascular accident and . I also discussed the likelihood of arthritic changes down the road in her right ankle as a sequela of this injury. Patient would like to proceed she was interviewed preoperatively, informed consent is signed by myself and the patient. I initialed her right ankle and left foot. No guarantees written, expressed or implied, she wishes to proceed. Procedure: Under mild sedation the patient was brought to the operating room and placed on the operating table in supine position. A timeout was performed. Anesthesia was then administered by the anesthesia service. Well-padded pneumatic tourniquet applied to the right high calf and left ankle. The right lower extremity and left lower extremity were then scrubbed, prepped and draped utilizing normal aseptic technique. A double extremity drape was utilized. The right lower extremity was examined a weighted with an Esmarch bandage and a tourniquet inflated to 250 mmHg. Attention was directed to the right distal fibula where the lateral malleolus was palpated. Just lateral to the lateral malleolus a linear longitudinal i ncision was made through skin with a #15 blade. Dissection was carried down through subcutaneous tissue down to periosteum utilizing blunt technique care was taken to retract and preserve neurovascular tendinous structures. Bleeders were ligated and cauterized as necessary. Incision was made, fracture was identified this was an oblique fracture starting at the ankle mortise coursing anterior distal to posterior proximal. This was distracted and evacuated the underlying hematoma and callus formation. This was performed utilizing a curette and lavage. Fracture was reduced and temporarily stabilized utilizing [id number] bone reduction tenaculums. One third tubular plate was sized and placed with excellent bony apposition from distal to proximal utilizing accommodation of locking screws 3.5 mm in diameter. Excellent bony apposition and compression noted. Intraoperative fluoroscopy confirmed showed reduced fracture well fixated without violating the ankle mortise. Incision site was flushed with gross amounts of sterile saline solution. Cotton hook test employed showed no syndesmotic disruption. Periosteum was closed utilizing 2-0 Vicryl. Subcutaneous tissue closed utili aaronng 4-0 Vicryl skin closed utilizing skin cristy. Exparel was infiltrated in a grid like fashion subcutaneously at the incision. Adaptic, sterile 4 x 4, Kerlix and Dale wrap were then applied. Tourniquet was deflated and a prompt hyperemic response was noted to the distal digits of the right foot. Patient tolerated the procedure well. Tourniquet time 25 minutes to the right calf. Attention was then directed to the left foot, left foot was examined a weighted with an Esmarch bandage and tourniquet inflated to 250 mmhg. The fifth metatarsal head was palpated and directly over the fifth metatarsal coursing proximally along the diaphysis of the fifth metatarsal a linear longitudinal incision was made with #15 blade through skin. Blunt and sharp dissection carried down to the level of periosteum. Care was taken to retract and preserve neurovascular and tendinous structures. All bleeders were ligated and cauterized as necessary. Periosteal incision was made. Fracture site was id entified as an oblique fracture was not heavily comminuted. There is one small fragment that was found from operative field. This was excised. The hematoma was evacuated utilizing curettage and flushed with saline solution. Fracture was reduced and temporarily stabilized utilizing [id number] bone reduction forceps. 2 interfrag screws utilizing standard AO technique were performed perpendicular to the fracture. These were 2.7 mm Sterlington cortical screws. Next a 4 hole straight plate was introduced at the dorsal aspect of the distal fifth metatarsal and fixated utilizing a total of 4 screws to 2.7 mm in diameter with excellent bony apposition and compression noted. Temporary fixation was removed. Intraoperative fluoroscopy employed to confirm placement of hardware and fracture reduction is noted to be appropriate. Incision site was flushed with copious amounts of sterile saline solution. Periosteum was closed utilizing 3-0 Vicryl. Subcutaneous tissue closed utilizing 4-0 Vicryl and skin closed with 4-0 nylon. Subcutaneous tissue was infiltrated in a grid like fashion with Exparel at the incision site. This was then dressed utilizing Adaptic, sterile 4 x 4, Kerlix and Dale wrap. Tourniquet was deflated and a prompt hyperemic response was noted to the distal digits of the left foot. Tourniquet time to the left lower extremity was 25 minutes. Patient tolerated the procedures well and was transferred to the PACU with vital signs stable and vascular status intact. Following a period of postoperative monitoring she will be discharged home. She is to remain strict nonweightbearing to the left and right lower extremity at this time. Will resume baby aspirin 81 mg once daily tomorrow morning 05/11/2020. She was also prescribed pain medication to be taken judiciously as needed and was given instructions on discharge paperwork.
== END 2020-05-10 15:00 | disposition home or self-care (01) ==
PROVIDERS: PCP Internal Medicine; Visit Provider Podiatrist Foot & Ankle Surgery
PROC: (CPT 27792; principal; 2020-05-10 10:40)
PROC: (CPT 28485; 2020-05-10 10:40)
DX: S82.401A Unspecified fracture of shaft of right fibula, initial encounter for closed fracture (principal); S92.352A Displaced fracture of fifth metatarsal bone, left foot, initial encounter for closed fracture; W10.9XXA Fall (on) (from) unspecified stairs and steps, initial encounter; E66.01 Morbid (severe) obesity due to excess calories; Z68.39 Body mass index [BMI] 39.0-39.9, adult
CPT/HCPCS: 27792; 28485; 12345; 73610; 73630; 76000; 84703; C1713; C9290; J0131; J0690; J1100; J1200; J2405; J2704; J3010; J3490; J7030

== ENCOUNTER → 2020-05-17 09:25 | Outpatient (BNVA) | payer SELFPAY | PROVIDERS: PCP Internal Medicine; Visit Provider Podiatrist Foot & Ankle Surgery | DX: T14.8XXD Other injury of unspecified body region, subsequent encounter (principal); S82.831D Other fracture of upper and lower end of right fibula, subsequent encounter for closed fracture with routine healing; S92.352D Displaced fracture of fifth metatarsal bone, left foot, subsequent encounter for fracture with routine healing; X58.XXXD Exposure to other specified factors, subsequent encounter | CPT/HCPCS: 73610; 73630 ==

== ENCOUNTER → 2020-05-23 11:12 | Outpatient (BNVA) | payer SELFPAY | PROVIDERS: PCP Internal Medicine; Visit Provider Podiatrist Foot & Ankle Surgery | DX: S82.831A Other fracture of upper and lower end of right fibula, initial encounter for closed fracture (principal); S92.352A Displaced fracture of fifth metatarsal bone, left foot, initial encounter for closed fracture; X58.XXXA Exposure to other specified factors, initial encounter | CPT/HCPCS: 73610; 73630 ==

== ENCOUNTER → 2020-06-06 08:01 | Outpatient (BNVA) | payer SELFPAY | PROVIDERS: PCP Internal Medicine; Visit Provider Podiatrist Foot & Ankle Surgery | DX: S82.831A Other fracture of upper and lower end of right fibula, initial encounter for closed fracture (principal); S92.352A Displaced fracture of fifth metatarsal bone, left foot, initial encounter for closed fracture; X58.XXXA Exposure to other specified factors, initial encounter | CPT/HCPCS: 73610; 73630 ==

== ENCOUNTER 2020-06-06 10:11 | Outpatient (CLI) | payer SELFPAY | END 2020-06-06 10:12 | disposition home or self-care (01) | LOC: SPT 10:11 | PROVIDERS: PCP Internal Medicine; Visit Provider Podiatrist Foot & Ankle Surgery | DX: Z46.89 Encounter for fitting and adjustment of other specified devices (principal); S82.831D Other fracture of upper and lower end of right fibula, subsequent encounter for closed fracture with routine healing; X58.XXXD Exposure to other specified factors, subsequent encounter | CPT/HCPCS: L1902 ==

== ENCOUNTER → 2020-06-20 08:24 | Outpatient (BNVA) | payer SELFPAY | PROVIDERS: PCP Internal Medicine; Visit Provider Podiatrist Foot & Ankle Surgery | DX: S82.831A Other fracture of upper and lower end of right fibula, initial encounter for closed fracture (principal); X58.XXXA Exposure to other specified factors, initial encounter; Z98.890 Other specified postprocedural states | CPT/HCPCS: 73610; 73630 ==

== ENCOUNTER → 2020-10-07 11:42 | Outpatient (BNVA) | payer SELFPAY | PROVIDERS: PCP Internal Medicine; Visit Provider Podiatrist Foot & Ankle Surgery | DX: M25.571 Pain in right ankle and joints of right foot (principal); Z98.890 Other specified postprocedural states; S82.831D Other fracture of upper and lower end of right fibula, subsequent encounter for closed fracture with routine healing; S92.352D Displaced fracture of fifth metatarsal bone, left foot, subsequent encounter for fracture with routine healing; X58.XXXD Exposure to other specified factors, subsequent encounter | CPT/HCPCS: 73610 ==

== ENCOUNTER → 2020-10-21 08:56 | Outpatient (BNVA) | payer SELFPAY | PROVIDERS: PCP Internal Medicine; Visit Provider Podiatrist Foot & Ankle Surgery | DX: Z98.890 Other specified postprocedural states (principal); R60.0 Localized edema; M79.672 Pain in left foot; S93.602D Unspecified sprain of left foot, subsequent encounter; W19.XXXD Unspecified fall, subsequent encounter | CPT/HCPCS: 73610; 73630 ==

== ENCOUNTER 2021-07-30 23:01 | Emergency (ER) | payer SELFPAY ==
--- NOTE | 2021-07-30 23:07 | XRR_ITS ---
PROCEDURE INFORMATION: Exam: XR Right Ankle Exam date and time: 07/30/2021 11:47 PM Age: 25 years old Clinical indication: Injury or trauma; Fall; Sprain or strain; Right; Prior surgery; Surgery type: Ankle fixation. ; Patient HX: Patient tripped and rolled ankle tonight. C/O ankle pain. TECHNIQUE: Imaging protocol: XR Right ankle. Views: 3 or more views. COMPARISON: CR XR ankle RT min 3V* [id number] 04/21/2020 9:25 PM FINDINGS: Bones/joints: Intact buttress plate and screw fixation hardware in the distal fibula. No acute fracture or dislocation. Soft tissues: Normal. XR/XR ankle RT min 3V* [id number] IMPRESSION: No acute fracture or dislocation.
[2021-07-30 23:22] VITALS: BP 146/108; PULSE 106; RESP 18; TEMP 36.7; O2SAT 97; BMI 38.2
--- NOTE | 2021-07-30 23:34 | ED_ITS ---
HPI - Extremity Problem General: Chief complaint: Extremity Injury, Lower Stated complaint: Zach staley injury Time Seen by Provider: 07/30/21 23:34 History of Present Illness: 25-year-old female comes in today with injury to the right ankle. Patient was walking up a hill side and twisted her right ankle. Patient has pain to the lateral ankle and foot area. Patient does have a history of a fracture to the ankle last year. No obvious deformity is noted in the foot or ankle. Associated symptoms: Deny chest pain Review of Systems General: Reports: 10 or more systems reviewed and unremarkable except in HPI and below Card: Denies: chest pain Resp: Denies: dyspnea Musc: Reports: extremity pain (Right foot/ankle) PFS ED PFSH: Medical History Close exposure to COVID-19 virus Foreign body (FB) in soft tissue Suspected COVID-19 virus infection Viral URI with cough Female Reproductive History: Date of last menstrual period: 07/20/21 Physical Exam Const: COMMON NORMALS: alert HENMT: COMMON NORMALS: normocephalic HEAD & SCALP: normocephalic Neck/C-Spine: COMMON NORMALS: full ROM Resp: COMMON NORMALS: normal respiratory effort Cardio: COMMON NORMALS: regular rate RATE: regular rate Extremity: RIGHT LOWER EXTREMITY: Yes foot & digits (Lateral tenderness) Right ankle: Yes inspection, Yes palpation and Yes ROM and Yes foot & digits (Lateral tenderness at the base of the fifth metatarsal.) Right foot and digits: Yes inspection, Yes palpation, Yes ROM and Yes neurovascular exam Neuro: SENSORIUM/ORIENTATION: Yes alert Course Vital Signs: Vital signs: Vital Signs Temperature 98.0 F 07/30/21 23:22 Pulse Rate 106 H 07/30/21 23:22 Respiratory Rate 18 07/30/21 23:22 Blood Pressure 146/108 07/30/21 23:22 Pulse Oximetry 97 07/30/21 23:22 MDM - Extremity (Nontraumatic) Medical Decision Making 25-year-old female comes in today with injury to the right ankle. On exam no obvious deformity or swelling is noted to the ankle or foot. Pulses are intact. Sensation is intact. Differential diagnosis includes fracture, sprain, dislocation. X-rays noted no fracture or dislocation. Reviewed exam with patient with recommendations for treatment and follow-up. Patient reported understanding agreed to plan. Discharge Plan Discharge Patient Disposition: Home Clinical Impression: Ankle sprain and strain Condition: Stable Prescriptions: No Action (DME) CAM WALKER See Rx Instructions .ROUTE .MEDSUPPLY Qty: 2 0RF Rx Instructions: As directed (DME) ASO on the right weight baring See Rx Instructions .Route .MEDSUPPLY Qty: 1 0RF Rx Instructions: As directed [place] 10-325 mg tablet 1 tab PO Q4H Qty: 30 0RF Discharge Orders: Discharge ED (Routine); Ordered 07/30/21 Ordered By: Magdaleno Cruz Referrals: Parish Martin DO [Primary Care Provider] - Discharge Diet: Usual diet Discharge Activity: Increase activity as tolerated Patient Instructions: Ankle Sprain (ED), Opioid Safety Activity Restrictions/Additional Instructions: Use Dale wrap and crutches as needed for comfort until you can walk comfortably on the ankle. Use acetaminophen and ibuprofen for pain. Use ice or heat for further pain control. Follow-up with primary care for further instructions. Return to ER for new concerns. Stand Alone Forms: Work/School Release Coding Level of Care Code ED Envelope Folder for Alirio Fwd Exam Detailed
--- NOTE | 2021-07-30 23:38 | XRR_ITS ---
PROCEDURE INFORMATION: Exam: XR Right Foot Exam date and time: 07/30/2021 11:47 PM Age: 25 years old Clinical indication: Injury or trauma; Fall; Sprain or strain; Right; Prior surgery; Surgery type: Ankle fixation. ; Patient HX: Patient tripped and rolled ankle tonight. States cannot move toes. TECHNIQUE: Imaging protocol: XR Right foot. Views: 3 or more views. COMPARISON: CR XR ankle RT min 3V* [id number] 04/21/2020 9:25 PM FINDINGS: Bones/joints: No acute fracture or dislocation. Soft tissues: Normal. XR/XR foot RT min 3V* [id number] IMPRESSION: No acute fracture or dislocation.
== END 2021-07-31 00:20 | disposition home or self-care (01) ==
PROVIDERS: Emergency Provider Nurse Practitioner Family; PCP Internal Medicine
DX: S93.401A Sprain of unspecified ligament of right ankle, initial encounter (principal); S96.911A Strain of unspecified muscle and tendon at ankle and foot level, right foot, initial encounter; X50.1XXA Overexertion from prolonged static or awkward postures, initial encounter
CPT/HCPCS: 73610; 73630; 99283; E0114

== ENCOUNTER 2021-12-28 21:22 | Emergency (ER) | payer SELFPAY ==
[2021-12-28 21:30] VITALS: BP 167/98; PULSE 130; RESP 16; TEMP 36.4; O2SAT 97
[2021-12-28 21:50] LABS: Basophils # 0.1 10^3/uL (0.0-0.1); Basophils % 0.4 %; Eosinophils # 0.1 10^3/uL (0.0-0.8); Eosinophils % 1.1 %; Hematocrit 41.7 % (37.0-47.0); Hemoglobin 13.9 g/dL (11.5-15.3); Lymphocytes # 4.5 10^3/uL (0.8-4.8); Mean Corpuscular HGB Conc 33.3 g/dL (30.0-36.0); Mean Corpuscular Hemoglobin 29.1 pg (28.0-34.0); Mean Corpuscular Volume 87.2 fl (81-99); Mean Platelet Volume 9.3 fL (7.4-10.4); Monocytes # 0.7 10^3/uL (0.2-0.9); Monocytes % 5.5 %; Neutrophils # 7.42 10^3/uL (1.8-7.7); Neutrophils % 57.8 %; Nucleated Red Blood Cells % 0 %; Platelet Count 383 10^3/cmm (130-400); Red Blood Count 4.78 10^6/uL (4.1-5.3); Red Cell Distribution Width 12.3 % (12.1-15.1); White Blood Count 12.8 10^3/uL (4.0-10.0)
[2021-12-28 22:07] LABS: Alanine Aminotransferase 38 U/L (0-33); Albumin Level 4.3 g/dL (3.5-5.2); Alkaline Phosphatase 102 U/L (35-105); Anion Gap 16.5 (5-19); Aspartate Amino Transferase 16 U/L (0-32); Blood Urea Nitrogen 7 mg/dL (6-20); Carbon Dioxide 23 mmol/L (22-29); Chloride 102 mmol/L (98-107); Globulin 3.8 g/dL (1.3-4.6); Glomerular Filtration Rate 102.8 mL/min (90-130); Glucose 104 mg/dL (65-115); Lipase 23 U/L (13-60); Osmolality Calculated 284 mOsm/kg (285-295); Potassium 3.5 mmol/L (3.5-5.1); Sodium 138 mmol/L (136-145); Total Bilirubin 0.3 mg/dL (0.15-1.2); Total Protein 8.1 g/dL (6.6-8.7)
--- NOTE | 2021-12-28 22:14 | CTR_ITS ---
PROCEDURE INFORMATION: Exam: CT Abdomen And Pelvis With Contrast Exam date and time: 12/28/2021 10:27 PM Age: 26 years old Clinical indication: Abdominal pain; Localized; Right lower quadrant (rlq); Prior surgery; Surgery date: 6+ months; Surgery type: Gb; Additional info: Rlq pain TECHNIQUE: Imaging protocol: Computed tomography of the abdomen and pelvis with contrast. Radiation optimization: All CT scans at this facility use at least one of these dose optimization techniques: automated exposure control; mA and/or kV adjustment per patient size (includes targeted exams where dose is matched to clinical indication); or iterative reconstruction. Contrast material: OMNI 350; Contrast volume: 80 ml; Contrast route: INTRAVENOUS (IV); COMPARISON: No relevant prior studies available. RADIATION DOSE METRICS: Total DLP (mGy-cm): 1109.47 FINDINGS: Liver: Diffuse hepatic steatosis. No mass. Gallbladder and bile ducts: Cholecystectomy. No ductal dilation. Pancreas: Normal. No ductal dilation. Spleen: Normal. No splenomegaly. Adrenal glands: Normal. No mass. Kidneys and ureters: Normal. No hydronephrosis. Stomach and bowel: Unremarkable. No obstruction. No mucosal thickening. Appendix: No evidence of appendicitis. Intraperitoneal space: Unremarkable. No free air. No significant fluid collection. Vasculature: Unremarkable. No abdominal aortic aneurysm. Lymph nodes: Unremarkable. No enlarged lymph nodes. Urinary bladder: Unremarkable as visualized. Reproductive: 3.5 cm right ovarian simple appearing cyst noted. Bones/joints: No acute fracture. Soft tissues: Unremarkable. CT/CT abdomen pelvis w con* [id number] IMPRESSION: No acute findings.
[2021-12-28] MEDS: ondansetron 2 mg/ML SDV 2 mL 4 MG IVP (22:21)
[2021-12-28] MEDS: sodium chloride 0.9% 1,000 ML 999 ML IV ×2 (22:21→23:01)
[2021-12-28 22:22] VITALS: RESP 18
[2021-12-28] MEDS: morphine 4 mg/mL SDV 1 mL IVP (22:22)
[2021-12-28] MEDS: iohexol 350 mg/mL 100 mL Btl IV (22:28)
[2021-12-28 23:01] VITALS: BP 152/111; PULSE 132; RESP 18; O2SAT 99
--- NOTE | 2021-12-28 23:02 | ED_ITS ---
HPI - Abdominal Pain General: Chief Complaint: Abdominal Pain Stated Complaint: right side abd pain Time Seen by Provider: 12/28/21 21:33 Source: patient History of Present Illness: 6-year-old female with a history of cholecystectomy. She presents with abdominal pain is started as epigastric pain and lower chest pain earlier in the day, and is progressively moved to the right lower quadrant mainly this evening. She notes nausea. No fever. No vomiting. No diarrhea. No blood in the stool. She states she is not . She also notes some difficulty urinating, and says that she is only been able to urinate a bit 1 time today. MD elicited complaint: abdominal pain Onset (ago): hour(s) Pain Consistency: constant Location: RLQ Quality: aching Radiation: none Migration to: epigastric (From here to RLQ) Exacerbating factors: movement Relieving factors: nothing Associated Symptoms: Reports poor appetite; Denies constipation, diarrhea, dyspepsia, fever(s), heartburn, hematochezia and vomiting Related Data: Date of Last Menstrual Period: 07/20/21 Review of Systems Const: Denies: fever(s) ENMT: Denies: throat pain Card: Reports: chest pain (Lower chest/epigastric pain earlier, gone now) Resp: Denies: dyspnea, productive cough or non-productive cough GI: Denies: vomiting, heartburn, diarrhea, constipation or hematochezia : Reports: difficulty voiding; Denies: flank pain [facility] ED PFSH: Medical History Close exposure to COVID-19 virus Foreign body (FB) in soft tissue Suspected COVID-19 virus infection Viral URI with cough Female Reproductive History: Date of last menstrual period: 07/20/21 Physical Exam Const: GENERAL APPEARANCE: cooperative; not ill appearing and not frail appearing HENMT: COMMON NORMALS: normocephalic, atraumatic and Normal external nose present HEAD & SCALP: normocephalic and atraumatic FACE & SINUS: normal facial exam and face symmetric NOSE: Normal external nose present Eye: COMMON NORMALS: Equal, round and reactive pupils present and EOMs intact bilaterally PUPIL: Yes Equal, round and reactive pupils present Neck/C-Spine: GENERAL: Yes trachea midline Chest: CHEST: Yes Symmetrical chest wall rise Resp: COMMON NORMALS: normal respiratory effort, No retractions, No use of accessory muscles and clear to auscultation bilaterally AUSCULTATION: clear to auscultation bilaterally Cardio: COMMON NORMALS: regular rate and regular rhythm RATE: regular rate RHYTHM: regular rhythm GI: COMMON NORMALS: Normal to inspection, nondistended, normoactive bowel sounds present and Soft to palpation PALPATION: Yes Soft to palpation, Yes Tenderness to palpation present (GI) Details: RLQ and Yes Guarding due to palpation present (GI) Extremity: COMMON NORMALS: no pedal edema Neuro: JB COMA SCALE: document GCS findings Jb coma scale eye opening: Spontaneous [place] coma scale verbal response: Orientated [place] coma scale motor response: Obey commands [place] coma scale total score: 15 SENSORY EXAM: Yes extremities (intact) Psych: COMMON NORMALS: speech normal SPEECH: Yes normal speech Skin: COMMON NORMALS: no rashes or lesions noted GENERAL SKIN EXAM: no rashes or lesions noted Course Vital Signs: Vital signs: Vital Signs Temperature 97.6 F 12/28/21 21:30 Pulse Rate 132 H 12/28/21 23:01 Respiratory Rate 18 12/28/21 23:01 Blood Pressure 152/111 12/28/21 23:01 Pulse Oximetry 99 12/28/21 23:01 Oxygen Delivery Me thod 12/28/21 21:30 MDM - Abdominal Pain Medical Decision Making 26-year-old female with right-sided abdominal pain. White blood cell count is 12.8. Other laboratory is benign. Urinalysis does not show urinary tract infection. CT is negative. No appendicitis on CT. She is feeling improved after fluids, and has been able to urinate. She will be allowed to go home. Lab Data : 12/28/21 21:45 12/28/21 21:45 Labs/Radiology: Radiology Impressions Abdomen/Pelvis CT 12/28/21 22:14 IMPRESSION: No acute findings. Laboratory Results WBC 12.8 10^3/uL (4.0-10.0) H 12/28/21 21:45 RBC 4.78 10^6/uL (4.1-5.3) 12/28/21 21:45 Hgb 13.9 g/dL (11.5-15.3) 12/28/21 21:45 Hct 41.7 % (37.0-47.0) 12/28/21 21:45 MCV 87.2 fl (81-99) 12/28/21 21:45 MCH 29.1 pg (28.0-34.0) 12/28/21 21:45 MCHC 33.3 g/dL (30.0-36.0) 12/28/21 21:45 RDW 12.3 % (12.1-15.1) 12/28/21 21:45 Plt Count 383 10^3/cmm (130-400) 12/28/21 21:45 MPV 9.3 fL (7.4-10.4) 12/28/21 21:45 Neut % (Auto) 57.8 % 12/28/21 21:45 Lymph % (Auto) 35.0 % 12/28/21 21:45 Terry % (Auto) 5.5 % 12/28/21 21:45 Eos % (Auto) 1.1 % 12/28/21 21:45 Baso % (Auto) 0.4 % 12/28/21 21:45 Neut # (Auto) 7.42 10^3/uL (1.8-7.7) 12/28/21 21:45 Lymph # (Auto) 4.5 10^3/uL (0.8-4.8) 12/28/21 21:45 Terry # (Auto) 0.7 10^3/uL (0.2-0.9) 12/28/21 21:45 Eos # (Auto) 0.1 10^3/uL (0.0-0.8) 12/28/21 21:45 Baso # (Auto) 0.1 10^3/uL (0.0-0.1) 12/28/21 21:45 Nucleated RBC % (auto) 0 % 12/28/21 21:45 Nucleated RBCs # 0.0 /100WBC 12/28/21 21:45 Sodium 138 mmol/L (136-145) 12/28/21 21:45 Potassium 3.5 mmol/L (3.5-5.1) 12/28/21 21:45 Chloride 102 mmol/L (98-107) 12/28/21 21:45 Carbon Dioxide 23 mmol/L (22-29) 12/28/21 21:45 Anion Gap 16.5 (5-19) 12/28/21 21:45 BUN 7 mg/dL (6-20) 12/28/21 21:45 Creatinine 0.7 mg/dL (0.5-0.9) 12/28/21 21:45 GFR Calculation 102.8 mL/min (90-130) 12/28/21 21:45 Glucose 104 mg/dL (65-115) 12/28/21 21:45 Calculated Osmolality 284 mOsm/kg (285-295) L 12/28/21 21:45 Calcium 10.0 mg/dL (8.5-10.5) 12/28/21 21:45 Total Bilirubin 0.3 mg/dL (0.15-1.2) 12/28/21 21:45 AST 16 U/L (0-32) 12/28/21 21:45 ALT 38 U/L (0-33) H 12/28/21 21:45 Alkaline Phosphatase 102 U/L (35-105) 12/28/21 21:45 Total Protein 8.1 g/dL (6.6-8.7) 12/28/21 21:45 Albumin 4.3 g/dL (3.5-5.2) 12/28/21 21:45 Globulin 3.8 g/dL (1.3-4.6) 12/28/21 21:45 Lipase 23 U/L (13-60) 12/28/21 21:45 HCG, Qual Negative (Negative) 12/28/21 22:51 Urine Color Yellow (Yellow) 12/28/21 23:49 Urine Appearance Clear (CLEAR) 12/28/21 23:49 Urine pH 7 (5-7) 12/28/21 23:49 Ur Specific [place] 1.005 (1.005-1.030) 12/28/21 23:49 Urine Protein Neg (Negative) 12/28/21 23:49 Urine Glucose (UA) Norm (Normal) 12/28/21 23:49 Urine Ketones Negative (Negative) 12/28/21 23:49 Urine Blood Neg (Negative) 12/28/21 23:49 Urine Nitrate Negative (Negative) 12/28/21 23:49 Urine Bilirubin Neg (Negative) 12/28/21 23:49 Urine Urobilinogen Neg mg/dL (Negative) 12/28/21 23:49 Ur Leukocyte Esterase Trace (Negative) H 12/28/21 23:49 Urine RBC 0-4 /hpf (0-2) H 12/28/21 23:49 Urine WBC 0-4 /hpf (0-5) H 12/28/21 23:49 Ur Squamous Epith Cells 5-10 /hpf (0-5) H 12/28/21 23:49 Amorphous Sediment Not Reportable 12/28/21 23:49 Urine Bacteria Trace /hpf (NONE) 12/28/21 23:49 Discharge Plan Discharge Patient Disposition: Home Clinical Impression: Abdominal pain Condition: Stable Prescriptions: No Action (DME) CAM WALKER See Rx Instructions .ROUTE .MEDSUPPLY Qty: 2 0RF Rx Instructions: As directed (DME) ASO on the right weight baring See Rx Instructions .Route .MEDSUPPLY Qty: 1 0RF Rx Instructions: As directed [place] 10-325 mg tablet 1 tab PO Q4H Qty: 30 0RF Discharge Orders: Discharge ED (Routine); Ordered 12/29/21 Ordered By: William Barnes Referrals: Parish Martin DO [Primary Care Provider] - 1-3 days Patient Instructions: Abdominal Pain (ED), Opioid Safety, Pain Management Activity Restrictions/Additional Instructions: Return for fever greater than 100, worsening pain, vomiting liquids or medications, blood in the stool, any other concerning symptoms. Coding Level of Care Code ED Chair Mender for Chg Fwd Exam Comprehensive
[2021-12-28 23:09] LABS: HCG, Serum Qual Negative (Negative)
[2021-12-29 00:20] LABS: Add Urine Microscopic? YES; Bilirubin Urine Neg (Negative); Blood Urine Neg (Negative); Glucose Urine UA Norm (Normal); Ketones Urine Negative (Negative); Leukocyte Esterase Urine Trace (Negative); Nitrate Urine Negative (Negative); Protein Urine Neg (Negative); Specific Gravity, Urine 1.005 (1.005-1.030); Urine Appearance Clear (CLEAR); Urine Color Yellow (Yellow); Urobilinogen Urine Neg (Negative); pH Urine 7 (5-7)
[2021-12-29 00:21] LABS: Add Urine Culture? No; Bacteria Urine TRACE /hpf; RBC Urine 0-4 /hpf (0-2); WBC Urine 0-4 /hpf (0-5)
[2021-12-29] MEDS: ketorolac 30 mg/mL INJ 15 MG IVP (00:37)
== END 2021-12-29 00:43 | disposition home or self-care (01) ==
PROVIDERS: Nurse Practitioner Family; Emergency Provider Emergency Medicine; PCP Internal Medicine
DX: R10.9 Unspecified abdominal pain (principal)
CPT/HCPCS: 51798; 74177; 80053; 81001; 81003; 83690; 84703; 85025; 96361; 96374; 96375; 99285; J1885; J2270; J2405; J7030; Q9967

== ENCOUNTER → 2022-01-08 11:33 | Outpatient (BNVA) | payer SELFPAY | PROVIDERS: PCP Internal Medicine; Visit Provider Podiatrist Foot & Ankle Surgery | DX: M79.671 Pain in right foot (principal); M79.89 Other specified soft tissue disorders | CPT/HCPCS: 73610 ==

== ENCOUNTER → 2022-02-27 09:55 | Day surgery (SDC) | payer SELFPAY ==
[2022-02-26 08:28] VITALS: BMI 37.5
[2022-02-27 10:08] VITALS: BP 158/90; PULSE 83; RESP 17; TEMP 36.6; O2SAT 98
[2022-02-27] MEDS: gabapentin 300 mg Capsule PO (10:25)
[2022-02-27] MEDS: sodium chloride 0.9% 1,000 ML 30 ML IV (10:25)
--- NOTE | 2022-02-27 10:28 | ANES.PREANE2 ---
Pre-Anesthetic Assessment Height/Weight: Height 1.65 m Weight 102.512 kg Temp Pulse Resp BP Pulse Ox O2 Del Method 97.9 F 83 17 158/90 98 02/27/22 10:08 02/27/22 10:08 02/27/22 10:08 02/27/22 10:08 02/27/22 10:08 02/27/22 10:09 Preop Diagnosis: Painful hardware right ankle Operation Date: 02/27/22 11:35 Proposed Procedures p Procedure: Deep hardware removal right ankle 29673,T84.84XA(Right) - Srini Cedillo DPM Familial anesthetic complications: None Was Beta Claudia taken within 24 hours: N/A Was Clonidine taken within 24 hours: N/A Last intake: Intake Last Liquid Date 02/26/22 Last Liquid Time 23:00 Last Solid Date 02/26/22 Last Solid Time 19:00 Social No alcohol and No tobacco Exam alert, oriented x 3, clear to auscultation bilaterally and regular rate & rhythm Airway Mallampati: Class III Dentition: full Metabolic Morbid Obesity Anesthetic Plan ASA status: 2 Anesthesia: General Risk of > 500 ml blood loss (7ml/kg in children): No Medications/Allergies Home Medications Medication Instructions Recorded Confirmed Last Taken Type CAM WALKER #2 ea 04/23/20 02/18/22 Unknown Rx ASO on the right weight baring #1 ea 06/06/20 02/18/22 Unknown Rx hydrocodone 10 mg-acetaminophen 1 tab PO Q6H 7 days #28 tabs 02/26/22 Unknown Rx 325 mg tablet Allergies Allergy/AdvReac Type Severity Reaction Status Date / Time No Known Allergies Allergy Verified 02/27/22 10:15 Current Medications Generic Name Dose Route Start Last Admin Trade Name Freq PRN Reason Stop Dose Admin Sodium Chloride 1,000 mls @ 30 mls/hr 02/27/22 10:00 02/27/22 10:25 Sodium Chloride 0.9% IV 02/28/22 09:59 30 mls/hr .Q24H RUBEN Administration PFSH Anesthesia Medical History Close exposure to COVID-19 virus Foreign body (FB) in soft tissue Suspected COVID-19 virus infection Viral URI with cough Female Reproductive History Date of last menstrual period: 02/26/22 Data Anesthesia Cardiac Studies: No Data to Display
[2022-02-27 11:05] LABS: OR HCG Qualitative Urine Negative (Negative)
--- NOTE | 2022-02-27 11:07 | W.PM.OPSUD ---
Surgery/Procedure H&P Update DATE OF PROCEDURE: February 27, 2022 DATE H&P PERFORMED: 02/18/22 CHANGES TO PREVIOUS DOCUMENTATION: none PREOP DIAGNOSIS: Painful hardware right ankle PLANNED PROCEDURE: Operation Date: 02/27/22 11:35 Proposed Procedures p Procedure: Deep hardware removal right ankle [id number],T84.84XA(Right) - Srini Cedillo DPM
[2022-02-27] MEDS: ceFAZolin 2,000 MG in sodium chloride 0.9% (plus) 50 ML 100 MG IV (11:21)
[2022-02-27] MEDS: lidocaine 1% INJ 20 mL XX (11:43)
[2022-02-27 12:01] VITALS: BP 114/69; PULSE 119; RESP 13; TEMP 36.1; O2SAT 97
--- NOTE | 2022-02-27 12:01 | P.OP_ITS ---
Operative Report Date of procedure: February 27, 2022 Pre-op diagnosis: Preop Diagnosis Painful hardware right ankle Post-op diagnosis: Painful hardware, right ankle Post-op findings: None Procedure done: Deep hardware removal, right lateral ankle. CPT code 89337 Implants: 2-0 Vicryl, 3-0 Vicryl, skin cristy. Specimens removed/disposition: None Pathology: None Surgeon: Srini Cedillo D.P.M. Blankbook Stitching Machine Operator: Naresh Estimated blood loss: 5 18 IV fluids: None Urine output: 0 Complications: None Brief History: 26-year-old female presents for surgical consultation of hardware removal right lateral ankle.? Is finished physical therapy, has been taking scheduled NSAIDs, still has pain at the hardware site.? Requesting hardware removal at next available opportunity.? I reviewed at length with the patient, the risks, potential complications, benefits, alternatives, expectations, and typical outcomes associated with the surgery. The risks and potential complications were explained in detail, including but not limited to infection, wound dehiscence or soft tissue complications, bleeding and hematoma, chronic edema, neuritis or nerve damage producing numbness or chronic pain, CRPS, failure to relieve pain or worsening pain, thick / painful / unsightly scar, limited motion / stiffness, malposition, delayed union, malunion, or nonunion, fracture, reaction to implants, anesthetic complications, venous thromboembolism, and deformity recurrence.? I discussed the notion of no regrets with the patient as it pertains to complications and outcomes. The patient seemed to understand the nature of the proposed care and required convalescence. They asked appropriate questions, answered to their satisfaction. They are aware no guarantees can be made as to a satisfactory outcome and they understand there may be other possible unforeseen complications or outcomes not listed here that will be treated accordingly if they arise. There were no written or implied guarantees given to the patient. They gave informed consent to proceed. Procedure: Under mild sedation the patient was brought to the operating room and remained on the gurney in supine position. A timeout was performed. Anesthesia was then administered by the anesthesia service. Local anesthesia injected by myself consisting of 20 cc of one-to-one mixture 1% lidocaine and 0.5% Marcaine plain in a V-block fashion to the right lateral leg proximal to the incision planned. Well-padded pneumatic tourniquet applied to the right high calf. The right lower extremity was then scrubbed, prepped and draped utilizing normal aseptic technique. Right foot and ankle were exanguinated with an Esmarch bandage and a tourniquet inflated to 250 mmHg. Attention was directed to the previous incision at the right lateral ankle from previous open reduction internal fixation of right distal fibula. Over the previous cicatrix a linear longitudinal incision was made through skin with a #15 blade. Dissection was carried down through subcutaneous tissue utilizing a combination of blunt and sharp technique. Care was taken to retract and preserve neurovascular and tendinous structures. All bleeders were ligated and cauterized as necessary. Dissection was carried down further to layer of hardware, total of 7 screws and a one third tubular plate were explanted and passed from the operative field without difficulty. The fibula was inspected noted to have excellent bony union, all rough edges from screw to plate to bone interface were smoothed utilizing a hand rasp and the incision was then irrigated with copious ruben of sterile saline solution. All hardware was removed in total and passed from operative field. The incision was then i rrigated with copious of sterile skin solution and closed in a layered fashion. Periosteum reapproximated utilizing 2-0 Vicryl. Subcutaneous tissue reapproximated with 3-0 Vicryl and skin with skin cristy. The incision was dressed with Adaptic, sterile 4 x 4's, Kerlix, Dale wrap and a postop shoe was applied. Tourniquet was then deflated and a prompt hyperemic response was noted to the distal digits of the right foot. Patient tolerated the procedure and anesthesia well and was transferred to the PACU with vital signs stable and vascular status intact. Following a period of postoperative monitoring she will be discharged home may be weightbearing as tolerated. Was given at home care instructions, follow-up and my cell phone number to contact with any postoperative questions or concerns.
[2022-02-27] MEDS: ondansetron 2 mg/ML SDV 2 mL 4 MG IVP (12:11)
[2022-02-27 12:19] VITALS: BP 113/78; PULSE 88; RESP 16; TEMP 36.6; O2SAT 98
[2022-02-27 12:25] VITALS: BP 111/72; PULSE 86; RESP 17; TEMP 36.6; O2SAT 92
[2022-02-27] MEDS: HYDROcodone-acetaminophen 10-325 mg Tablet 1 TAB PO (12:47)
--- NOTE | 2022-02-27 13:03 | ANE.PACU2 ---
Inpatient post-anesthesia follow up: Airway intact: Yes Vital signs: Temperature 97.9 F Pulse Rate 86 Respiratory Rate 17 Blood Pressure 111/72 Pulse Oximetry 92 Oxygen Delivery Me thod Room Air Oxygen Flow Rate 10 Fraction of Inspir ed Oxygen Hydration adequate: Yes Nausea and vomiting: No Pain level: 1 Mental status: Baseline
== END | disposition home or self-care (01) ==
PROVIDERS: Anesthesiology; PCP Internal Medicine; Visit Provider Podiatrist Foot & Ankle Surgery
PROC: (CPT 20680; principal; 2022-02-27 11:25)
DX: T84.84XA Pain due to internal orthopedic prosthetic devices, implants and grafts, initial encounter (principal); E66.01 Morbid (severe) obesity due to excess calories; Z68.37 Body mass index [BMI] 37.0-37.9, adult
CPT/HCPCS: 20680; 84703; J0131; J0690; J1100; J1885; J2250; J2405; J2704; J3010; J7030

== ENCOUNTER 2024-01-19 14:06 | Outpatient (CLI) | payer OTHER, SELFPAY | END 2024-01-19 14:07 | disposition home or self-care (01) | LOC: SLEEP 14:10 | PROVIDERS: PCP Internal Medicine; Visit Provider Family Medicine | DX: G47.33 Obstructive sleep apnea (adult) (pediatric) (principal) | CPT/HCPCS: G0399 ==

== ENCOUNTER 2024-03-04 00:49 | Emergency (ER) | payer OTHER, SELFPAY ==
[2024-03-04 01:00] VITALS: BP 136/94; PULSE 99; RESP 17; TEMP 36.7; O2SAT 99; BMI 38.2
--- NOTE | 2024-03-04 01:11 | W.ED.GENADLT ---
HPI - General Adult General: Chief complaint: Dental/Oral Stated complaint: right side of face into/ including ear are hurting Time Seen by Provider: 03/04/24 01:04 Source: patient Mode of arrival: ambulatory Limitations: no limitations History of Present Illness: 28-year-old female states been having right ear pain for the last 3 days she states it is worsened states pain sharp in nature rates an 8 out of 10 she denies any fevers denies any vomiting or diarrhea. 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 #2 ea 04/23/20 ASO on the right weight baring #1 ea 06/06/20 ofloxacin 0.3 % ear drops 10 drp otic (ear) DAILY 7 days #5 03/04/24 mL Allergies Allergy/AdvReac Type Severity Reaction Status Date / Time No Known Allergies Allergy Verified 03/04/24 01:00 Review of Systems Const: Denies: fever(s), chills, body aches or change in appetite ENMT: Reports: ear or mastoid pain; Denies: throat pain or dental pain Card: Denies: chest pain Resp: Denies: dyspnea GI: Denies: abdominal pain, nausea, vomiting or diarrhea Musc: Denies: neck pain or back pain Skin/Breast: Denies: rash Neuro: Denies: headache(s) PFS ED PFSH: Medical History Foreign body (FB) in soft tissue Viral URI with cough Close exposure to COVID-19 virus Suspected COVID-19 virus infection Female Reproductive History: Date of last menstrual period: 02/23/24 Physical Exam Const: COMMON NORMALS: no acute distress, patient oriented x3 and healthy appearing HENMT: COMMON NORMALS: normocephalic and atraumatic HEAD & SCALP: normocephalic and atraumatic MOUTH: Normal oral and palatal mucosa present THROAT: posterior oropharynx normal OTHER: Otitis externa right ear no otitis media no mastoid tenderness Eye: COMMON NORMALS: conjunctivae normal CONJUNCTIVA: Yes conjunctivae normal Neck/C-Spine: COMMON NORMALS: full ROM and supple Chest: COMMONS NORMALS: normal inspection of the chest Resp: COMMON NORMALS: normal respiratory effort Cardio: COMMON NORMALS: regular rate, regular rhythm and No murmurs present (Cardio) RATE: regular rate RHYTHM: regular rhythm Extremity: COMMON NORMALS: normal to inspection and full ROM Neuro: COMMON NORMALS: patient oriented x3, moves all extremities and no focal motor deficits Psych: COMMON NORMALS: mental status grossly normal, Normal thought process present and cooperative THOUGHT PROCESS: Normal thought process present Skin: COMMON NORMALS: no rashes or lesions noted and no wounds GENERAL SKIN EXAM: no rashes or lesions noted Course Vital Signs: Vital signs: Vital Signs Temperature 98.0 F 03/04/24 01:00 Pulse Rate 99 03/04/24 01:00 Respiratory Rate 17 03/04/24 01:00 Blood Pressure 136/94 03/04/24 01:00 Pulse Oximetry 99 03/04/24 01:00 Oxygen Delivery Me thod Room Air 03/04/24 01:00 MDM - General Adult Medical Decision Making Patient presents with right ear pain does have an otitis externa we will start on antibiotic drops she is follow-up with her PCP return if worsening. Medical Records I reviewed the patient's medical records. 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
[2024-03-04 01:13] VITALS: BP 134/85; PULSE 95; RESP 18; O2SAT 97
[2024-03-04 01:19] VITALS: BP 146/84; PULSE 100; RESP 16; O2SAT 96
[2024-03-04] MEDS: HYDROcodone-acetaminophen 5-325 mg Tablet 2 TAB PO (01:26)
== END 2024-03-04 01:26 | disposition home or self-care (01) ==
PROVIDERS: Emergency Provider Emergency Medicine; PCP Family Medicine
DX: H60.501 Unspecified acute noninfective otitis externa, right ear (principal)
CPT/HCPCS: 99283